=== PATIENT | male | born 1995 | race Caucasian/White ===

== ENCOUNTER 2016-08-17 12:57 | Emergency (ER) | payer SELFPAY ==
[~2016-08-17] VITALS: Ht 167.6 cm; Wt 64.0 kg
[2016-08-17 13:03] VITALS: Ht 167.6 cm; Wt 64.0 kg
[2016-08-17] MEDS ORDERED: LIDOCAINE 1% (MDV) 20 ML INJ SC ONE (15:30)
[2016-08-17] MEDS ORDERED: CEPH-443 PO (17:03)
[2016-08-17] MEDS ORDERED: IBUP-1542 PO (17:03)
--- NOTE | 2016-08-17 21:39 | ERD ---
ER Documentation Chief Complaint Date/Time DATE: 08/17/16 TIME: 21:35 Chief Complaint RIGHT ARM PUNCTURE WOUND, PALM TREE THORN EMBEDDED. 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 States that he felt like a piece of the branch/palm tree punctured his right forearm. States that this area is painful with movement. Describes the pain as throbbing and rates it a 3 out of 10. States that he tried to take out the palm tree thorn himself. Denies any fever, chills, abdominal pain, loss of sensation, loss of range of motion, chest pain, numbness or tingling, weakness. Denies any other injuries. resaw feeder used at this time. ROS All systems reviewed and are negative except as per history of present illness. Medications Home Meds Active Scripts Ibuprofen* (Motrin*) 600 Mg Tab, 600 MG PO Q6, #30 TAB Prov:JENNY DESHPANDE PA-C 08/17/16 Cephalexin* (Keflex*) 500 Mg Capsule, 500 MG PO QID for 7 Days, CAP Prov:JENNY DESHPANDE PA-C 08/17/16 Allergies Allergies: Coded Allergies: No Known Allergy (Unverified , 08/17/16) PMhx/Soc Medical and Surgical Hx: pt denies Medical Hx, pt denies Surgical Hx Hx Alcohol Use: No Hx Substance Use: No Hx Tobacco Use: No Smoking Status: Current every day smoker Physical Exam Vitals Vital Signs Date Time Temp Pulse Resp B/P Pulse Ox O2 Delivery O2 Flow Rate FiO2 08/17/16 13:03 98.3 78 18 131/71 98 Physical Exam Const: [id number], well-nourished. In no acute distress. Head: Atraumatic, normocephalic Eyes: Normal Conjunctiva without injection ENT: Normal external ear, nose and mouth. Neck: Full range of motion. No meningismus. Resp: Clear to auscultation bilaterally. No wheezing, rhonchi, rales, or crackles. No accessory muscle use. No retractions. Cardio: Regular rate and rhythm, no murmurs Skin: No petechiae, purpura. Punctate wound noted on the dorsal aspect of patient's right mid-forearm with the splinter noted superficially. No surrounding erythema, edema, fluctuance, lymphatic streaking, induration, bleeding noted. Ext: No cyanosis, or edema. Full range of motion noted of the bilateral upper extremities. Cap refill less than 2 seconds. Distal pulses intact bilaterally. Neur: Awake and alert. Normal gait and coordination. Muscle strength 5/5. Sensation intact bilaterally. Psych: Normal Mood and Affect Results 24 hrs Current Medications Medications (Trade) Dose Ordered Sig/Hakeem Route PRN Reason Start Time Stop Time Status Last Admin Dose Admin Lidocaine (Xylocaine 1% (Mdv) 20 ml) 20 ml ONCE ONCE SC 08/17/16 15:30 08/17/16 15:31 DC Procedures/MDM 20-year-old male with no significant past medical history presents the ED complaining of a puncture wound from a palm tree thorn (frond) that occurred earlier today of his right forearm. Patient is afebrile and nontoxic- appearing. Patient at this time gave consent to remove the pump tree thorn ( frond) of his right forearm. Anesthesia: 5 cc 1% lidocaine locally Location: [Right dorsal aspect forearm] Tendon/Joint/Nerves: No injury Foreign body: 5 mm Palm tree frond Technique: A 0.5 cm incision made to remove the palm tree frond without complications or difficulty. Tweezers were used to remove the foreign body. Foreign body was also gently squeezed out of incision site with sterile gloves. My supervising physician, Dr. Boyce assisted me with the procedure at this time. I strictly instructed patient that we will leave the incision site for secondary intention healing. Patient will be prescribed Keflex for infection prevention. Patient's bleeding was easily controlled in the department and there is no indication of anemia. Patient is neurovascularly intact. No evidence of compartment syndrome, neurologic injury, vascular injury, open joint , tendon laceration, or foreign body. Patient is appropriate for outpatient follow up. 48 hour wound check. Scar minimization instructions given. Keflex was prescribed to patient for infection prevention. Ibuprofen prescribed for pain. Instructed patient to return to the ED sooner for any worsening symptoms. Follow up with primary care physician in 1-2 days. Patient 's questions were answered. Patient understood and agreed with discharge plan. Departure Diagnosis: Primary Impression: Puncture wound Additional Impression: Foreign body in soft tissue Condition: Stable Patient Instructions: First Aid: Punctures, Foreign Body, Soft Tissue (Removed) , Puncture Wound, General Referrals: [facility] YOU HAVE RECEIVED A MEDICAL SCREENING EXAM AND THE RESULTS INDICATE THAT YOU DO NOT HAVE A CONDITION THAT REQUIRES URGENT TREATMENT IN THE EMERGENCY DEPARTMENT. FURTHER EVALUATION AND TREATMENT OF YOUR CONDITION CAN WAIT UNTIL YOU ARE SEEN IN YOUR DOCTORS OFFICE WITHIN THE NEXT 1-2 DAYS. IT IS YOUR RESPONSIBILITY TO MAKE AN APPOINTMENT FOR FOLOW-UP CARE. IF YOU HAVE A PRIMARY DOCTOR --you should call your primary doctor and schedule an appointment IF YOU DO NOT HAVE A PRIMARY DOCTOR YOU CAN CALL OUR PHYSICIAN REFERRAL HOTLINE AT IF YOU CAN NOT AFFORD TO SEE A PHYSICIAN YOU CAN CHOSE FROM THE FOLLOWING [facility] [address] [facility] [address] [facility]. [facility] [address] [facility] [address] [facility] [address] [facility]. [facility] [address] [facility]. [facility] YOU HAVE RECEIVED A MEDICAL SCREENING EXAM AND THE RESULTS INDICATE THAT YOU DO NOT HAVE A CONDITION THAT REQUIRES URGENT TREATMENT IN THE EMERGENCY DEPARTMENT. FURTHER EVALUATION AND TREATMENT OF YOUR CONDITION CAN WAIT UNTIL YOU ARE SEEN IN YOUR DOCTORS OFFICE WITHIN THE NEXT 1-2 DAYS. IT IS YOUR RESPONSIBILITY TO MAKE AN APPOINTMENT FOR FOLOW-UP CARE. IF YOU HAVE A PRIMARY DOCTOR --you should call your primary doctor and schedule and appointment IF YOU DO NOT HAVE A PRIMARY DOCTOR YOU CAN CALL OUR PHYSICIAN REFERRAL HOTLINE AT . IF YOU CAN NOT AFFORD TO SEE A PHYSICIAN YOU CAN CHOSE FROM THE FOLLOWING [facility]: [facility] [address] [place] [address] [facility] [address] [place] [address] [facility] + [facility] [address] [place] [address] [facility] URGENT CARE/SPECIALTIES Additional Instructions: Visite a cassidy mak browne para un EXAMEN para yazmin revisin de la herida. Regrese a estas instalaciones si no se mejora mraia isabel esperbamos o maria isabel le dijimos. JENNY DESHPANDE PA-C Aug 17, 2016 21:39
== END 2016-08-17 17:50 | disposition home or self-care (01) ==
LOC: FTE 12:57
DX: S41.131A Puncture wound without foreign body of right upper arm, initial encounter (principal); F17.210 Nicotine dependence, cigarettes, uncomplicated; W45.8XXA Other foreign body or object entering through skin, initial encounter; Y92.9 Unspecified place or not applicable